=== PATIENT | female | born 1990 | race American Indian/Alaskan Native ===

== ENCOUNTER 2020-12-04 13:14 | Emergency (ER) | payer SELFPAY ==
[2020-12-04 13:46] VITALS: BP 148/88
--- NOTE | 2020-12-04 13:51 | Emergency Department Report ---
ED HPI - General Chief complaint: Vaginal Bleeding Stated complaint: 2 MONTHS BLEEDING Time Seen by Provider: 12/04/20 13:44 Source: patient Mode of arrival: Ambulatory Limitations: No Limitations - History of Present Illness Initial comments: Patient is a 30-year-old female who presents emergency room with complaints of vaginal bleeding that occurred today. She states that she passed one large clot and that the bleeding significantly improved. She denies any abdominal pain, nausea, vomiting, diarrhea, fever, dysuria, urinary symptoms, abnormal vaginal discharge. She believes that she is approximately 11 weeks . She states her last menstrual cycle was in August 2020. She has not seen anyone for this . She states that she took luzo-ewk-kheywfk test and it was positive. No past medical history. No allergies to medications. /P: 1/A: 0 - Related Data Allergies Allergy/AdvReac Type Severity Reaction Status Date / Time No Known Allergies Allergy Unverified 12/04/20 13:45 ED Review of Systems ROS: Stated complaint: 2 MONTHS BLEEDING Other details as noted in HPI Comment: All other systems reviewed and negative ED Past Medical Hx - Past Medical History Previous Medical History?: No - Surgical History Past Surgical History?: Yes Hx Cholecystectomy: Yes Additional Surgical History: BREAST REDUCTION, - Social History Smoking Status: Never Smoker Substance Use Type: None ED Physical Exam - General Limitations: No Limitations General appearance: alert, in no apparent distress - Head Head exam: Present: atraumatic, normocephalic - Eye Eye exam: Present: normal appearance - ENT ENT exam: Present: mucous membranes moist - Respiratory Respiratory exam: Present: normal lung sounds bilaterally. Absent: respiratory distress, wheezes, rales, rhonchi, stridor, chest wall tenderness, accessory muscle use, decreased breath sounds, prolonged expiratory - Cardiovascular Cardiovascular Exam: Present: regular rate, normal rhythm, normal heart sounds. Absent: systolic murmur, diastolic murmur, rubs, gallop - GI/Abdominal GI/Abdominal exam: Present: soft, normal bowel sounds. Absent: distended, tenderness, guarding, rebound, rigid - Neurological Exam Neurological exam: Present: alert, oriented X3 - Psychiatric Psychiatric exam: Present: normal affect, normal mood - Skin Skin exam: Present: warm, dry, intact ED Course Vital Signs 12/04/20 13:39 Temperature 97.8 F Pulse Rate 98 H Respiratory 18 Rate Blood Pressure 148/88 O2 Sat by Pulse 98 Oximetry ED Medical Decision Making - Lab Data Result diagrams: 12/04/20 14:14 12/04/20 14:14 Labs 12/04/20 12/04/20 12/04/20 14:14 14:14 14:14 WBC 6.8 RBC 4.49 Hgb 11.4 Hct 34.4 MCV 77 L MCH 26 L MCHC 33 RDW 13.9 Plt Count 264 Lymph % (Auto) 30.6 Canadian % (Auto) 4.4 Eos % (Auto) 0.3 Baso % (Auto) 0.4 Lymph # (Auto) 2.1 Canadian # (Auto) 0.3 Eos # (Auto) 0.0 Baso # (Auto) 0.0 Seg Neutrophils % 64.3 Seg Neutrophils # 4.4 Sodium 137 Potassium 3.8 Chloride 104.6 Carbon Dioxide 24 Anion Gap 12 BUN 9 Creatinine 0.7 Estimated GFR > 60 BUN/Creatinine Ratio 13 Glucose 106 H Calcium 8.8 HCG, Quant 07465 H Urine Color Urine Turbidity Urine pH Ur Specific [place] Urine Protein Urine Glucose (UA) Urine Ketones Urine Blood Urine Nitrite Urine Bilirubin Urine Urobilinogen Ur Leukocyte Esterase Urine WBC (Auto) Urine RBC (Auto) U Epithel Cells (Auto) Urine Mucus Blood Type 12/04/20 12/04/20 14:14 Unknown WBC RBC Hgb Hct MCV MCH MCHC RDW Plt Count Lymph % (Auto) Canadian % (Auto) Eos % (Auto) Baso % (Auto) Lymph # (Auto) Canadian # (Auto) Eos # (Auto) Baso # (Auto) Seg Neutrophils % Seg Neutrophils # Sodium Potassium Chloride Carbon Dioxide Anion Gap BUN Creatinine Estimated GFR BUN/Creatinine Ratio Glucose Calcium HCG, Quant Urine Color Yellow Urine Turbidity Clear Urine pH 5.0 Ur Specific [place] 1.027 Urine Protein <15 mg/dl Urine Glucose (UA) Neg Urine Ketones Neg Urine Blood Mod Urine Nitrite Neg Urine Bilirubin Neg Urine Urobilinogen 2.0 Ur Leukocyte Esterase Neg Urine WBC (Auto) 1.0 Urine RBC (Auto) 11.0 U Epithel Cells (Auto) 3.0 Urine Mucus Few Blood Type A POSITIVE - Radiology Data Radiology results: report reviewed Ordering Physician: NEGRO FERGUSON Date of Service: 12/04/20 Procedure(s): US OB transvaginal Accession Number(s): [id number] cc: NEGRO FERGUSON ULTRASOUND OBSTETRIC INDICATION: 11 weeks with vaginal bleeding. TECHNIQUE: Transabdominal and Transvaginal. COMPARISON: None available. FINDINGS: GESTATIONAL SAC: Well-defined oval shape and intrauterine in location. YOLK SAC: No significant abnormality. EMBRYO/FETUS: No significant abnormality. - Brandywine-Rump Length = 5.4 cm = 12 weeks, 0 day(s). - Heart Rate = 173 beats per minute. ADNEXA: No significant abnormality. FREE FLUID: None. ADDITIONAL FINDINGS: None. IMPRESSION: 1. Single, living intrauterine with estimated sonographic age of 12 weeks, 0 day(s). Signer Name: Jhony Fiore MD Signed: 12/04/2020 4:07 PM Workstation Name: [id number] Transcribed By: ADRIAN Dictated By: Jhony Fiore MD Electronically Authenticated By: Jhony Fiore MD Signed Date/Time: 12/04/201606 DD/ 04 TD/TT: - Medical Decision Making Patient is a 30-year-old female who presents emergency room with complaints of vaginal bleeding that occurred today. She states that she passed one large clot and that the bleeding significantly improved. She denies any abdominal pain, nausea, vomiting, diarrhea, fever, dysuria, urinary symptoms, abnormal vaginal discharge. She believes that she is approximately 11 weeks . She states her last menstrual cycle was in August 2020. She has not seen anyone for this . She states that she took ltxv-[id number]-[id number] test and it was positive. No past medical history. No allergies to medications. /P: 1/A: 0. VSS. No abdominal tenderness on exam, no guarding, no rebound, no rigidity, normal bowel sounds, no peritoneal signs. [place] [address]. Patient is Rh+. UA is within normal limits. OB ultrasound 1. Single, living intrauterine with estimated sonographic age of 12 weeks, 0 day(s). Discussed all findings with patient and answered questions. Given bleeding during discussed threatened miscarriage and the importance of close [facility] follow-up. Advised patient May take Tylenol at if you begin experiencing any pain. Please continue to take a vitamin [id number]. Increase your water intake. Practice pelvic rest. Follow-up with [facility]. You need to follow-up within the next 2 days. Return to emergency room immediately for any new or worsening symptoms. Critical care attestation.: If time is entered above; I have spent that time in minutes in the direct care of this critically ill patient, excluding procedure time. ED Disposition Clinical Impression: Threatened miscarriage Disposition: DC- TO HOME OR SELFCARE Is pt being admited?: No Does the pt Need Aspirin: No Condition: Stable Instructions: Threatened Miscarriage Additional Instructions: May take Tylenol at if you begin experiencing any pain. Please continue to take a vitamin [id number]. Increase your water intake. Practice pelvic rest. Follow-up with [facility]. You need to follow-up within the next 2 days. Return to emergency room immediately for any new or worsening symptoms. Referrals: PRIMARY CARE, [Primary Care Provider] - 2-3 Days [facility] [Provider Group] - 2-3 Days [facility] [Provider Group] - 2-3 Days [facility] [Provider Group] - 2-3 Days [facility] [Provider Group] - 2-3 Days Time of Disposition: 16:16 Print Language: PASHTO
[2020-12-04 14:37] LABS: Basophils % (Auto) 0.4 % (0.0-1.8); Eosinophils % (Auto) 0.3 % (0.0-4.3); Hematocrit 34.4 % (30.3-42.9); Hemoglobin 11.4 gm/dl (10.1-14.3); Lymphocytes # (Auto) 2.1 K/mm3 (1.2-5.4); Lymphocytes % (Auto) 30.6 % (13.4-35.0); Mean Corpuscular HGB Conc 33 % (30-34); Mean Corpuscular Volume 77 fl (79-97); Monocytes # (Auto) 0.3 K/mm3 (0.0-0.8); Monocytes % (Auto) 4.4 % (0.0-7.3); Platelet Count 264 K/mm3 (140-440); Red Blood Count 4.49 M/mm3 (3.65-5.03); Red Cell Distribution Width 13.9 % (13.2-15.2)
[2020-12-04 15:02] LABS: Bilirubin,Urine NEG (Negative); Blood,Urine MOD (Negative); Color,Urine Yellow (Yellow); Mucus,Urine FEW /HPF; Protein,Urine <15 mg/dL mg/dL (Negative)
[2020-12-04 15:04] LABS: Blood Urea Nitrogen 9 mg/dL (7-17); Calcium 8.8 mg/dL (8.4-10.2); Hemolysis Index 0
[2020-12-04 15:09] LABS: BUN/Creatinine Ratio 13
--- NOTE | 2020-12-04 16:11 | Ultrasound Report ---
ULTRASOUND OBSTETRIC INDICATION: 11 weeks with vaginal bleeding. TECHNIQUE: Transabdominal and Transvaginal. COMPARISON: None available. FINDINGS: GESTATIONAL SAC: Well-defined oval shape and intrauterine in location. YOLK SAC: No significant abnormality. EMBRYO/FETUS: No significant abnormality. - Altha-Rump Length = 5.4 cm = 12 weeks, 0 day(s). - Heart Rate = 173 beats per minute. ADNEXA: No significant abnormality. FREE FLUID: None. ADDITIONAL FINDINGS: None. IMPRESSION: 1. Single, living intrauterine with estimated sonographic age of 12 weeks, 0 day(s). Signer Name: Jhony Fiore MD Signed: 12/04/2020 4:07 PM Workstation Name: [id number]
--- NOTE | 2020-12-04 16:11 | Ultrasound Report ---
ULTRASOUND OBSTETRIC INDICATION: 11 weeks with vaginal bleeding. TECHNIQUE: Transabdominal and Transvaginal. COMPARISON: None available. FINDINGS: GESTATIONAL SAC: Well-defined oval shape and intrauterine in location. YOLK SAC: No significant abnormality. EMBRYO/FETUS: No significant abnormality. - [place]-Rump Length = 5.4 cm = 12 weeks, 0 day(s). - Heart Rate = 173 beats per minute. ADNEXA: No significant abnormality. FREE FLUID: None. ADDITIONAL FINDINGS: None. IMPRESSION: 1. Single, living intrauterine with estimated sonographic age of 12 weeks, 0 day(s). Signer Name: Jhony Fiore MD Signed: 12/04/2020 4:07 PM Workstation Name: [id number]
== END 2020-12-04 16:59 | disposition home or self-care (01) ==
LOC: ED 13:14
DX: O20.0 Threatened abortion (principal); Z90.49 Acquired absence of other specified parts of digestive tract; Z98.890 Other specified postprocedural states; Z3A.11 11 weeks gestation of pregnancy
CPT/HCPCS: 36415; 76801; 76817; 80048; 81001; 84702; 85025; 86900; 86901